=== PATIENT | female | born 1975 | race African-American/Black ===

== ENCOUNTER 2017-01-03 10:40 | Emergency (ER) | payer BC ==
[2017-01-03] MEDS ORDERED: ONDANSETRON 4 MG TAB.RAPDIS SL ONE (11:16)
--- NOTE | 2017-01-03 11:17 | ER Document Report ---
ED Medical Screen (RME) - General Chief Complaint: Abdominal Pain Stated Complaint: ABDOMINAL PAIN,VOMITING Time seen by provider: 11:16 Mode of Arrival: Ambulatory Information source: Patient TRAVEL OUTSIDE OF THE [place] IN LAST 30 DAYS: No - HPI Patient complains to provider of: nausea, vomiting Onset: This morning Onset/Duration: Sudden Quality of pain: Achy Severity: Moderate Pain Level: 3 Associated Symptoms: Abdominal pain, Nausea, Vomiting Exacerbated by: Denies Relieved by: Denies Similar symptoms previously: Yes Notes: 01/03/17 11:16 Patient is a 41-year-old female who is visiting from [place], drove and this morning, developed nausea and vomiting just a few hours ago, she reports a history of bleeding ulcers, takes omeprazole twice a day, she does note some blood in her vomit, also complaining of epigastric abdominal pain, denies fever , denies questionable food intake, denies diarrhea, no sick contacts - Related Data Allergies/Adverse Reactions: ketorolac [From Toradol] Allergy (Verified 01/03/17 10:45) Past Medical History Renal/ Medical History: Denies: Hx Peritoneal Dialysis Physical Exam - Vital signs Vitals: Temp Pulse Resp BP Pulse Ox 98.4 F 97 20 142/81 H 99 01/03/17 10:46 01/03/17 10:46 01/03/17 10:46 01/03/17 10:46 01/03/17 10:46 Course - Vital Signs Vital signs: Temp Pulse Resp BP Pulse Ox 98.4 F 97 20 142/81 H 99 01/03/17 10:46 01/03/17 10:46 01/03/17 10:46 01/03/17 10:46 01/03/17 10:46
[2017-01-03] MEDS ORDERED: NORMAL SALINE 1000 ML 1,000 ML IV PRN (11:48)
[2017-01-03] MEDS ORDERED: PANTOPRAZOLE SODIUM 40 MG VIAL IV ONE (11:48)
[2017-01-03 12:13] LABS: APPEARANCE,URINE SLIGHTLY-CLOUDY; BILIRUBIN,URINE NEGATIVE (NEGATIVE); GLUCOSE, URINE NEGATIVE (NEGATIVE); KETONES,URINE 20 mg/dL (NEGATIVE); LEUKOCYTE ESTERASE,URINE NEGATIVE (NEGATIVE); NITRITE,URINE NEGATIVE (NEGATIVE); PROTEIN,URINE NEGATIVE (NEGATIVE); URINE SPECIFIC GRAVITY 1.011; UROBILINOGEN,URINE NEGATIVE mg/dL (<2.0)
[2017-01-03] MEDS ORDERED: DICYCLOMINE HCL INJ 20 MG/2 ML AMPULE IM ONE (13:15)
[2017-01-03 13:20] LABS: HEMATOCRIT 44.8 % (36.0-47.0); HEMOGLOBIN 15.1 g/dL (12.0-15.5); HGB HCT DIFFERENCE 0.5; MEAN CORPUSCULAR HEMOGLOBIN 28.6 pg (27.0-33.4); MEAN CORPUSCULAR HGB CONC 33.7 g/dL (32.0-36.0); MEAN CORPUSCULAR VOLUME 85 fl (80-97); RED BLOOD COUNT 5.28 10^6/uL (3.72-5.28); RED CELL DISTRIBUTION WIDTH 13.3 % (11.5-14.0); WHITE BLOOD COUNT 10.3 10^3/uL (4.0-10.5)
[2017-01-03 13:34] LABS: ALANINE AMINOTRANSFERASE 27 U/L (9-52); ALBUMIN 4.5 g/dL (3.5-5.0); ALKALINE PHOSPHATASE 75 U/L (38-126); ANION GAP 12 (5-19); ASPARTATE AMINO TRANSFERASE 22 U/L (14-36); BILIRUBIN,DIRECT 0.1 mg/dL (0.0-0.4); BILIRUBIN,TOTAL 0.9 mg/dL (0.2-1.3); BLOOD UREA NITROGEN 19 mg/dL (7-20); CALCIUM 9.3 mg/dL (8.4-10.2); CARBON DIOXIDE 22 mmol/L (22-30); CHLORIDE 107 mmol/L (98-107); CREATININE RESULT 1.01 mg/dL (0.52-1.25); GLUCOSE 93 mg/dL (75-110); POTASSIUM 3.9 mmol/L (3.6-5.0); SODIUM 141.1 mmol/L (137-145); TOTAL PROTEIN 7.8 g/dL (6.3-8.2)
[2017-01-03 13:35] LABS: ALCOHOL < 10 mg/dL (NONE DETECTED)
[2017-01-03 13:54] LABS: URINE BARBITURATES SCREEN NEGATIVE; URINE METHADONE SCREEN NEGATIVE; URINE OPIATES LOW NEGATIVE; URINE PHENCYCLIDINE SCREEN NEGATIVE
[2017-01-03 13:58] LABS: PARTIAL THROMBOPLASTIN TIME 28.1 SEC (23.5-35.8)
[2017-01-03 14:25] LABS: BAND NEUTROPHILS % (MANUAL) 1 % (3-5); BASOPHILS % (MANUAL) 0 % (0-2); EOSINOPHILS % (MANUAL) 0 % (0-6); LYMPHOCYTES % (MANUAL) 5 % (13-45); TOTAL CELLS COUNTED 100; TOXIC GRANULATION 1+
[2017-01-03 14:26] LABS: HYPOCHROMASIA SLIGHT; TOXIC VACUOLATION PRESENT
--- NOTE | 2017-01-03 14:54 | ER Document Report ---
ED General - General Chief Complaint: Abdominal Pain Stated Complaint: ABDOMINAL PAIN,VOMITING Mode of Arrival: Ambulatory TRAVEL OUTSIDE OF THE [place] IN LAST 30 DAYS: No - HPI Patient complains to provider of: abdominal pain nausea vomiting Notes: Patient returns today for epigastric abdominal pain nausea vomiting. Patient is traveling from [facility] that she was delivered last night 8 barbecue or maybe back ribs around midnight and started vomiting early this morning around 3 or 4:00. Patient states she has a history of peptic ulcer disease is currently on omeprazole 40 mg twice a day and states that she did vomit up coffee-ground material. Patient states last EGD was performed approximately 2 years ago. Patient denies any other past medical history denies any alcohol abuse. Upon my evaluation patient is rolling around in bed holding the epigastric region. Otherwise patient does not look to be unstable. Patient denies fevers chills diarrhea trauma - Related Data Allergies/Adverse Reactions: ketorolac [From Toradol] Allergy (Verified 01/03/17 10:45) Past Medical History - General Information source: Patient - Social History Smoking Status: Never Smoker Frequency of alcohol use: Rare Drug Abuse: None Family History: Reviewed & Not Pertinent Patient has suicidal ideation: No Patient has homicidal ideation: No Renal/ Medical History: Denies: Hx Peritoneal Dialysis GI Medical History: Reports: Hx Gastroesophageal Reflux Disease Surgical Hx: Negative - Immunizations Hx Diphtheria, Pertussis, Tetanus Vaccination: No Review of Systems - Review of Systems Constitutional: No symptoms reported EENT: No symptoms reported Cardiovascular: No symptoms reported Respiratory: No symptoms reported Gastrointestinal: Abdominal pain, Nausea, Vomiting Genitourinary: No symptoms reported Female Genitourinary: No symptoms reported Musculoskeletal: No symptoms reported Skin: No symptoms reported Hematologic/Lymphatic: No symptoms reported Neurological/Psychological: No symptoms reported -: Yes All other systems reviewed and negative Physical Exam - Vital signs Vitals: Temp Pulse Resp BP Pulse Ox 98.4 F 97 20 142/81 H 99 01/03/17 10:46 01/03/17 10:46 01/03/17 10:46 01/03/17 10:46 01/03/17 10:46 Interpretation: Normal - General General appearance: Appears well, Alert - HEENT Head: Normocephalic, Atraumatic Eyes: Normal Pupils: PERRL - Respiratory Respiratory status: No respiratory distress Chest status: Nontender Breath sounds: Normal Chest palpation: Normal - Cardiovascular Rhythm: Regular Heart sounds: Normal auscultation Murmur: No - Abdominal Inspection: Normal Distension: No distension Bowel sounds: Normal Tenderness: Tender - Diffuse tenderness no rebound no guarding. No: Nontender, McBurney's point, Gutierrez's sign, Guarding, Rebound Organomegaly: No organomegaly - Back Back: Normal, Nontender - Extremities General upper extremity: Normal inspection, Nontender, Normal color, Normal ROM , Normal temperature General lower extremity: Normal inspection, Nontender, Normal color, Normal ROM , Normal temperature, Normal weight bearing. No: Ced's sign - Neurological Neuro grossly intact: Yes Cognition: Normal Orientation: AAOx4 [place] Coma Scale Eye Opening: Spontaneous [place] Coma Scale Verbal: Oriented [place] Coma Scale Motor: Obeys Commands Angelica Coma Scale Total: 15 Speech: Normal Motor strength normal: LUE, RUE, LLE, RLE Sensory: Normal - Psychological Associated symptoms: Normal affect, Normal mood - Skin Skin Temperature: Warm Skin Moisture: Dry Skin Color: Normal Course - Re-evaluation Re-evalutation: 01/03/17 15:15 started workup with a acute normal serious but did show a large amount stool retained throughout the colon. Patient did have IV access obtained and I initiated Protonix. Patient still continue the pain therefore I did offer the patient IM dose of Bentyl according to nursing staff patient was very upset Bentyl. Slit informed by nursing staff the patient is requesting to be discharged. Patient's lab work shows no signs of anemia Chem-12 also return with normal results. Did discuss these results and the x-ray results with the patient it splinted the patient that because of her constipation we would avoid any narcotic pain medication at this time and that I would consult her GI specialist for possible other interventions. While waiting patient requested to leave therefore initially was signed out AGAINST MEDICAL ADVICE however during this period time I was able to discuss patient's case with Dr. Tello. I did discuss with Dr. Tello who agrees with assessment and plan discharge patient home follow-up with her GI doctor to stick to a clear liquid diet Bentyl Zofran and miralax. Upon last evaluation patient was on her cell phone. Patient stayed on her cell phone while I was discussing my consultation with Dr. Tello and discharge plan - Vital Signs Vital signs: Temp Pulse Resp BP Pulse Ox 98.5 F 68 16 136/84 H 99 01/03/17 14:48 01/03/17 14:48 01/03/17 14:48 01/03/17 14:48 01/03/17 14:48 - Laboratory Result Diagrams: 01/03/17 12:55 01/03/17 12:55 Laboratory results interpreted by me: 01/03/17 01/03/17 11:35 12:55 Seg Neuts % (Manual) 93 H Band Neutrophils % 1 L Lymphocytes % (Manual) 5 L Monocytes % (Manual) 1 L Abs Neuts (Manual) 9.7 H Urine Ketones 20 H Urine Blood SMALL H Discharge - Discharge Clinical Impression: Abdominal pain Qualifiers: Abdominal location: generalized Qualified Code(s): R10.84 - Generalized abdominal pain Vomiting Qualifiers: Vomiting type: unspecified Vomiting Intractability: unspecified Nausea presence : unspecified Qualified Code(s): R11.10 - Vomiting, unspecified Constipation Qualifiers: Constipation type: unspecified constipation type Qualified Code(s): K59.00 - Constipation, unspecified Condition: Good Disposition: AGAINST MEDICAL ADVICE Instructions: Abdominal Pain ([facility]), Vomiting ([facility]), Constipation ([facility]) Additional Instructions: Your x-ray of your abdomen today shows no complications from her stomach ulcers but does show a large amount stool retained throughout the colon. This is consistent with moderate to severe constipation. I would highly recommend taking a laxative or stool softener [id number]. More likely this could be an etiology of your abdominal pain. Your lab work does not show any other critical pathology. Your hemoglobin has been normal. I will give you prescription for Bentyl for abdominal cramps and Zofran for nausea. I did discuss your case with our GI specialist regional medical director who agrees at this time more likely we can treat you as outpatient. He agrees with the medication prescribed. He does recommend a clear liquid diet for the next 24 hours. Return to the ER symptoms worsen. Prescriptions: Ondansetron [Zofran Odt 4 mg Tablet] 4 mg PO Q4HP PRN #30 tab.rapdis PRN Reason: Dicyclomine HCl [Bentyl 20 mg Tablet] 20 mg PO QID #20 tablet Polyethylene Glycol 3350 [Miralax Powder 17 gm/Packet] 1 packet PO DAILY #1 pkg Forms: Return to Work
[2017-01-03 15:03] VITALS: BP 136/84
== END 2017-01-03 15:00 | disposition home or self-care (01) ==
LOC: ER 10:40
DX: K59.00 Constipation, unspecified (principal); K27.9 Peptic ulcer, site unspecified, unspecified as acute or chronic, without hemorrhage or perforation; R11.2 Nausea with vomiting, unspecified; Z79.899 Other long term (current) drug therapy; Z88.8 Allergy status to other drugs, medicaments and biological substances; Z87.19 Personal history of other diseases of the digestive system
CPT/HCPCS: 99284; 96372; 96361; 96374; 36415; 87086; 80307 ×2; 83690; 85025; 85610; 85730; 81025; 80053; 81001; 74022; J0500; S0119; S0164; J7030